=== PATIENT | male | born 1965 | race Hispanic/Latino ===

== ENCOUNTER 2017-05-21 21:31 | Emergency (ER) | payer SELFPAY ==
[~2017-05-21] VITALS: Ht 170.2 cm; Wt 86.2 kg
[2017-05-21] MEDS ORDERED: ZOFRAN ODT4 MG PO (21:46)
[2017-05-21] MEDS ORDERED: OXYCONTIN10 MG PO (21:47)
== END 2017-05-21 22:47 | disposition home or self-care (01) ==
LOC: ED 21:31
DX: Z43.1 Encounter for attention to gastrostomy (principal); Z85.850 Personal history of malignant neoplasm of thyroid; Z87.891 Personal history of nicotine dependence; Z79.899 Other long term (current) drug therapy
CPT/HCPCS: 74000; 99283